=== PATIENT | male | born 1935 | race Caucasian/White ===

== ENCOUNTER → 2018-06-26 | Day surgery (SDC) | payer OTHER, MEDICARE ==
[~2018-06-26] VITALS: Ht 172.7 cm; Wt 72.6 kg
[~2018-06-26] MED LIST: OXYCODONE-ACET1 EACH PO
--- NOTE | 2018-06-26 13:46 | Operative Report ---
Operative/Inv Procedure Report Surgery Date: 06/26/18 Name of Procedure: Robotic assisted laparoscopic recurrent right inguinal hernia and left primary inguinal hernia repair Pre-Operative Diagnosis: Left inguinal hernia Post-Operative Diagnosis: Bilateral inguinal hernia (right side recurrent) Estimated Blood Loss: scant Surgeon/Embossing Clerk: Frantz HARRIS,Shad Nielson/Frannie BAIRD Anesthesia: general endotracheal tube Implants: Parietex pro animal therapist Operative/Procedure Note Note: After consent patient brought to the operating room laid supine. General anesthesia was obtained and his abdomen was prepped and draped. Skin was observed local anesthesia at Mendez's point and a transverse incision made sharply. Access the peritoneum was gained percutaneously using an 8 mm optical trocar. Pneumoperitoneum was achieved. 2 more 8 mm ports were placed under direct vision in the transverse plane. The patient is placed in Trendelenburg, robot docked, targeted and instruments placed under direct vision. I then broke scrub and went to the console. The abdomen was explored. There was very large indirect hernia containing small bowel loops in the left groin. There is also evidence of direct recurrent right inguinal hernia. Decision was made to repair both of them. I started on the left side. I then developed a preperitoneal flap by taking down the peritoneum just superior to the defect. We then developed the preperitoneal plane with scissor cautery. Medially we dissected down to the pubic tubercle and freed up to proceed ligament. There is a large indirect sac which was dissected free from indirect space and dissected free from the cord structures. Was then delivered inferiorly. Just medial to the vessels, there was evidence of small femoral hernia. Once I was happy with the dissection, a 10 x 15 cm piece of parietex pro animal therapist was placed in the cavity. Was placed over the defects and unraveled and self adhered to the fascial tissues. Attention was then turned to the right side. In a similar fashion peritoneum was taken down superiorly and dissection carried forth throughout the direct and indirect spaces. There is a tiny indirect hernia. There is a moderate to large sized direct hernia both of which were dissected free and delivered and reflected inferiorly. Mesh was then placed in similar fashion. The 2 meshes overlapped in the middle over the symphysis pubis. Once I was happy with the placement of mesh the peritoneal flaps were closed with a running absorbable 2-0V lock suture. Sutures then removed and passed off the field. The ports were delivered and passed off the field. Skin incisions closed with 4-0 Vicryl. Steri-Strips and sterile dressing are applied. Sponge and needle counts are correct. Findings: Primary indirect bowel containing hernia in the left Recurrent direct right-sided inguinal hernia CC: Ralph HARRIS,Christos Steven
== END ==
LOC: STS 02:43
DX: K40.91 Unilateral inguinal hernia, without obstruction or gangrene, recurrent (principal); K40.90 Unilateral inguinal hernia, without obstruction or gangrene, not specified as recurrent; I10 Essential (primary) hypertension; M19.90 Unspecified osteoarthritis, unspecified site
CPT/HCPCS: C1781; C9290; J0131; J0690